=== PATIENT | male | born 1990 | race Hispanic/Latino ===

== ENCOUNTER 2018-09-26 17:04 | Observation (INO) | payer BC, OTHER ==
[~2018-09-26] VITALS: Ht 182.9 cm; Wt 114.8 kg
[2018-09-26] MEDS ORDERED: SODIUM CHLORIDE 0.9% 1000ML 1,000 ML IV ONE ×2 (17:30→18:15)
[2018-09-26] MEDS ORDERED: INSULIN REGULAR, HUMAN 100 UNIT/1 ML 3ML VIAL IV ONE (17:45)
--- NOTE | 2018-09-26 17:47 | NUR ---
LIPS SHOW 'LIPID' READ THROUGHOUT REPEATING TEST. FSBS 560 NOTIFIED.
[2018-09-26] MEDS ORDERED: MORPHINE SULFATE 2 MG/ML SYR 1ML IV PRN (18:15)
[2018-09-26] MEDS ORDERED: DEXTROSE 50% SYRINGE 50 ML IV PRN (18:15)
[2018-09-26] MEDS ORDERED: ONDANSETRON HCL INJ 2MG/ML 2ML 2 MG/ML VIAL IV PRN (18:15)
--- NOTE | 2018-09-26 18:29 | NUR ---
pending room to be clean. report to drew;). 2nd liter ns running w.o.; unable to get cmp d/t blood lipemic. ordered labs for [facility] [place] arrival.
--- NOTE | 2018-09-26 18:31 | NUR ---
pt now states type 2 diabetic newly diagnosised. notified.
--- NOTE | 2018-09-26 18:39 | Diagnostic Imaging Report ---
EXAM: CT Abdomen and Pelvis WITHOUT contrast INDICATION: Abdominal pain. Nausea and vomiting x2 days. COMPARISON: None. TECHNIQUE: Abdomen and pelvis were scanned utilizing a multidetector helical scanner from the lung base to the pubic symphysis without administration of IV contrast. Absence of intravenous contrast decreases sensitivity for detection of focal lesions and vascular pathology. Coronal and sagittal reformations were obtained. Routine protocol was performed. IV CONTRAST: None ORAL CONTRAST: Water COMPLICATIONS: None RADIATION DOSE: Total DLP: 850.29 mGy*cm Estimated effective dose: (DLP x 0.015 x size factor) mSv CTDIvol has been reviewed. It is below the limits set by the Radiation Protocol Committee (RPC). FINDINGS: LINES and TUBES: None. LOWER THORAX: Unremarkable HEPATOBILIARY: The liver is diffuse hypodense compared to the spleen, consistent with diffuse hepatic diffuse hepatic steatosis. No focal hepatic lesions. No biliary ductal dilation. GALLBLADDER: No radio-opaque stones or sludge. No wall thickening. SPLEEN: No splenomegaly. PANCREAS: Indistinct pancreatic tail with peripancreatic fat stranding. ADRENALS: No adrenal nodules KIDNEYS/URETERS: No hydronephrosis. No cystic or solid mass lesions. No stones. GI TRACT: No abnormal distention, wall thickening, or evidence of bowel obstruction. Appendix is normal. PELVIC ORGANS/BLADDER: Unremarkable. LYMPH NODES: No lymphadenopathy. VESSELS: Unremarkable. PERITONEUM / RETROPERITONEUM: No free air or fluid. BONES: Unremarkable. SOFT TISSUES: Subtle nonspecific soft tissue stranding in the right anterior abdominal wall subcutaneous tissue, possibly related to medication injection. IMPRESSION: 1. Distal pancreatitis. No fluid collections or free fluid. 2. Diffuse hepatic steatosis. Signed by: Dr. Morales Lombardi M.D. on 09/26/2018 6:36 PM
[2018-09-26 21:00] VITALS: BP 118/66
[2018-09-26] MEDS: INSULIN REGULAR, HUMAN 100 UNIT/1 ML 3ML VIAL SQ SCH (22:11)
[2018-09-26] MEDS ORDERED: MORPHINE SULFATE INJ 4 MG/ML INJ 1ML ONE (22:13)
--- NOTE | 2018-09-26 22:25 | NUR ---
Patient was given 4mg of Morphine for reported pain on his abdomen 04/17. About 30 seconds after the morphine was slowly administered, patient developed a rash on left side of his arm all the way to his chest. Patient reported feeling "anxious, and funny" and stated that was the first time he had morphine. The rash slowly got better. Patient denied SOB and chest discomfort.
[2018-09-26] MEDS: SODIUM CHLORIDE 0.9% 1000ML 1,000 ML IV SCH (22:31)
[2018-09-26 22:40] VITALS: BP 118/66
[2018-09-27] VITALS (7 sets, daily range): BP systolic 103–130; BP diastolic 58–74
[2018-09-27 00:10] LABS: ALBUMIN 3.2 g/dL (3.5-5.0); ALBUMIN/GLOBULIN RATIO 0.6 (0.8-2.0); ALKALINE PHOSPHATASE 56 IU/L (40-150); ANION GAP 22.5 mmol/L (8-16); BLOOD UREA NITROGEN 8 mg/dL (7-26); BUN/CREATININE RATIO 12 (6-25); CALCIUM 8.1 mg/dL (8.4-10.2); CARBON DIOXIDE 10 mmol/L (22-29); CHLORIDE 97 mmol/L (98-107); CREATININE, SERUM 0.68 mg/dL (0.72-1.25); EST GLOMERULAR FILTRATION RATE > 60 ML/MIN (60-); GLUCOSE 225 mg/dL (74-118); POTASSIUM 3.5 mmol/L (3.5-5.1)
[2018-09-27 00:13] LABS: SODIUM 126 mmol/L (136-145)
[2018-09-27 00:37] LABS: ALANINE AMINOTRANSFERASE 50 IU/L (0-55)
[2018-09-27] MEDS: SODIUM CHLORIDE 0.9% 1000ML 1,000 ML IV SCH ×4 (02:09→21:05)
--- NOTE | 2018-09-27 05:43 | NUR ---
Call the attending physician Raphael Vyas MD. to request for pain medication. The patient has been experiencing pain throughout the night on his abdomen. He was sleeping earlier, but now that he woke up he states "I was exhausted and knocked out but the pain has not resolved, is worse when I lay on my side". Have not received a response yet.
[2018-09-27 06:44] LABS: AMYLASE 28 U/L (25-125); ANION GAP 19.6 mmol/L (8-16); BLOOD UREA NITROGEN 7 mg/dL (7-26); BUN/CREATININE RATIO 9 (6-25); CALCIUM 8.1 mg/dL (8.4-10.2); CARBON DIOXIDE 15 mmol/L (22-29); CHLORIDE 98 mmol/L (98-107); CREATININE, SERUM 0.76 mg/dL (0.72-1.25); EST GLOMERULAR FILTRATION RATE > 60 ML/MIN (60-); GLUCOSE 254 mg/dL (74-118); LIPASE 92 U/L (8-78); POTASSIUM 3.6 mmol/L (3.5-5.1); SODIUM 129 mmol/L (136-145)
[2018-09-27] MEDS: FAMOTIDINE 20 MG TAB PO SCH ×2 (07:39→16:32)
[2018-09-27] MEDS: DONNATAL/LIDOCAINE/MAALOX 30 ML SUSP PO SCH ×3 (07:45→21:05)
[2018-09-27] MEDS: INSULIN REGULAR, HUMAN 100 UNIT/1 ML 3ML VIAL SQ SCH ×2 (07:50→12:09)
[2018-09-27] MEDS: MORPHINE SULFATE INJ 4 MG/ML INJ 1ML IV PRN ×3 (10:08→23:18)
[2018-09-27 10:24] LABS: CHOL/HDL RATIO 30.9 (3.9-4.7); CHOLESTEROL 649 MD/DL (0-199); HDL CHOLESTEROL 21 MG/DL (40-60); LIPASE 96 U/L (8-78)
--- NOTE | 2018-09-27 10:41 | NUR ---
SOCIAL WORK INITIAL ASSESSMENT T[employer] Curer to bedside to discuss plan of care with patient/family. CM/SW role and care transitions discussed. Anticipated discharge plan discussed along with duration of care. CM/SW discussed patients right to make decisions in care. CM/SW work hours given. Patient lives: IN APT WITH GIRLFRIEND Admit/Transfer: VIA ED POA/Emergency contact: MOTHER CATINA NUGENT [phone] Current/Previous Home Health: NONE PCP/Follow-up Care: [facility] Current/Previous DME: NONE Other Services: NONE Employment Status: MEDIA STRATEGIST- [employer] Areas of Concerns: NONE Referral Needs: NONE Education Needs: NONE IMM/DENNIS given and signed (if applicable): NA Goal for discharge: RETURN HOME CM/SW left business card at the bedside with contact information. Name and number was also written on the patients whiteboard. Patient verbalized understanding of discussion. CM will follow-up with ongoing discharge and transition of care needs.
--- NOTE | 2018-09-27 10:52 | NUR ---
POST DISCHARGE STATUS FORM FILE DIN CHART TO RETURN HOME WITH NO NEEDS
[2018-09-27 11:40] LABS: TRIGLYCERIDES 3550 MG/DL (0-149)
--- NOTE | 2018-09-27 14:33 | History and Physical ---
REASON FOR ADMISSION: This is a 27-year-old male, who comes in with abdominal pain and was found to have hyperglycemia with hyperosmolarity. HISTORY OF PRESENT ILLNESS: The patient is a 27-year-old male with a history of diabetes mellitus, recently started on Janumet, which is for his diabetes. The patient had stopped for about a month's time because of natural difficulties. The patient restarted the medication about 5 days prior to admission. The patient started out with abdominal pain, it was radiating to the back, and considered about 8/10 in intensity and the patient also had nausea and vomiting. The patient continued to have these symptoms for 2-3 days until the symptoms abated and the patient was able to eat a little bit. The patient went to work yesterday and started throwing up again, came to the emergency room and was found to have hyperosmolarity, dehydration, and hyperglycemia. He was given 10 units of insulin in the ED and the patient's hyperglycemia did come down. PAST MEDICAL HISTORY: History of diabetes, otherwise nonsignificant. SOCIAL HISTORY: No smoking. No EtOH. No IV drug abuse. FAMILY HISTORY: Positive for hypertension, positive for CAD and positive for diabetes in the family. ALLERGIES: THE PATIENT HAS ALLERGIC REACTION TO MORPHINE. MEDICATIONS: The patient's medicines at home are Janumet 5/500 twice a day. REVIEW OF SYSTEMS: Negative for chest pain. No shortness of breath. Positive for nausea and vomiting. No diarrhea. No constipation. No rectal bleeding. No hematochezia. No hematemesis. No blurry vision. Positive for some headache and no diplopia. PHYSICAL EXAMINATION: VITAL SIGNS: Temperature is 99.0, T-max was 99.0, pulse is 82, blood pressure is 103/58, pulse ox is 96%. HEENT: Normocephalic, atraumatic. Anicteric. CVS: S1 and S2 normal. Regular rate and rhythm. ABDOMEN: Tender in the epigastrium and diffuse tenderness. EXTREMITIES: No clubbing, no cyanosis, and no edema. LABORATORY VALUES: Initial sodium was 126, BUN was 8, creatinine 0.68, anion gap was 22.5, CO2 was 10. Total bilirubin was 0.4. Total protein was 8.9, lipase was 88. Today's values are pending. CBC was normal. Hemoglobin was 18.8 with marked hyperglycemia. Specific gravity was 1.005, pH is 5 on urine and leukocytes negative. ASSESSMENT: 1. Hyperglycemia. 2. Hyperosmolarity. 3. Dehydration. 4. Noncompliance. 5. Hyperlipidemia. 6. Possible acute pancreatitis lipase. PLAN: 1. Continue with hydration and keep the patient n.p.o. Consult with Dr. Ric Noel will be done. 2. The patient will be started on GI cocktail right now. 3. Further recommendation and clinical course, we will continue to monitor the patient. The patient's blood sugar levels will be noted very carefully. His bicarb is 10. We will continue monitoring it and follow up with labs today. The patient is not admitted for DKA, I did not know the bicarb level at that time. Asael Lim MD ASJ/MODL /[id number]
--- NOTE | 2018-09-27 15:07 | Consultation ---
DATE OF CONSULTATION: September 27, 2018 ENDOCRINE CONSULTATION This is a patient of Dr. Asael Lim. Thank you very much for referring this patient. This is a 27-year-old gentleman who is referred to me for evaluation of uncontrolled diabetes mellitus and hyperlipidemia. The patient came to the hospital with history of severe abdominal pain. On further evaluation, his triglycerides were found to be in 3556, and cholesterol was 649. His blood sugars were elevated slightly with high anion gap. His hemoglobin A1c is 13.7. It is significantly elevated. The patient does not smoke, but he drinks alcohol. He does have family history of diabetes mellitus. PHYSICAL EXAMINATION GENERAL: Today the patient is alert, awake, a little bit apprehensive. He is moderately overweight. SKIN: He has acanthosis nigricans skin lesions on his neck. VITALS: His heart rate is around 86. Blood pressure 130/80 mmHg. HEENT: Examination is essentially unremarkable. Thyroid is palpable. Clinically he is near euthyroid. CHEST: Bilateral vesicular breathing. No rales heard. CARDIAC: First and 2nd heart sounds. There is no 3rd or 4th heart sound. Ejection systolic murmur grade 2/6. ABDOMEN: Epigastric and right upper quadrant tenderness. EXTREMITIES: The patient has evidence of diabetic sensory neuropathy in both lower extremities. CLINICAL IMPRESSION 1. Hyperlipidemia. 2. Acute pancreatitis. 3. Diabetes mellitus, type 2, with complications. PLAN: The plan at this time is to continue the IV fluids. Keep him n.p.o. or advance his diet slowly. Will also put him on the Levemir insulin and monitor the blood sugars closely and discontinue the Janumet for now. Thank you for referring this patient. I will be following this patient with you. Job#: [id number] [employer]
[2018-09-27 15:38] LABS: FREE T4 (FREE THYROXINE) 0.91 ng/dL (0.9-1.8); THYROID STIMULATING HORMONE 0.854 uIU/mL (0.350-4.940)
[2018-09-27] MEDS: ENOXAPARIN SOD INJ 40 MG/0.4 ML SYR SC SCH (16:33)
[2018-09-27] MEDS: INSULIN LISPRO 100 UNIT/1 ML 3ML VIAL SQ SCH ×2 (16:49→21:00)
--- NOTE | 2018-09-27 19:45 | NUR ---
Got report from previous nurse. Patient is NPO as per Dr. Lim. Patient has a [address] Lim was notified and ordered Tylenol 650 mg q6hr. Patients at bedside. Call alejandra within reach.
[2018-09-27] MEDS: ACETAMINOPHEN 325 MG TAB PO PRN (20:03)
[2018-09-27] MEDS ORDERED: INSULIN GLARGINE 100 UNITS/ML VIAL SQ SCH ×2 (21:00)
[2018-09-27] MEDS: ATORVASTATIN 20 MG TAB PO SCH (21:04)
[2018-09-28] VITALS (8 sets, daily range): BP systolic 119–141; BP diastolic 65–76
--- NOTE | 2018-09-28 00:15 | NUR ---
Dr. Reji Noel called to give a PO Miralox to the patient for constipation and consent for EGD.
[2018-09-28] MEDS: SODIUM CHLORIDE 0.9% 1000ML 1,000 ML IV SCH ×5 (00:27→14:30)
[2018-09-28] MEDS ORDERED: POLYETHYLENE GLYCOL 3350 17 GM PACK PO PRN (00:30)
[2018-09-28] MEDS ORDERED: SODIUM CHLORIDE 0.9% 1000ML 1,000 ML ONE (04:39)
[2018-09-28 05:31] LABS: BASOPHILS % 0.5 % (0.0-1.0); EOSINOPHILS # (AUTO) 0.3 (0.0-0.4); EOSINOPHILS % 4.2 % (0.0-6.0); HEMATOCRIT 37.7 % (38.2-49.6); HEMOGLOBIN 13.3 g/dL (14.0-18.0); LYMPHOCYTES # (AUTO) 1.6 (1.0-3.2); LYMPHOCYTES % 24.5 % (18.0-39.1); MEAN CORPUSCULAR HEMOGLOBIN 32.1 pg (28-32); MEAN CORPUSCULAR HGB CONC 35.3 g/dL (31-35); MEAN CORPUSCULAR VOLUME 91.1 fL (81-99); MONOCYTES # (AUTO) 0.7 (0.2-0.8); MONOCYTES % 11.1 % (4.4-11.3); NEUTROPHILS # (AUTO) 3.8 (2.1-6.9); NEUTROPHILS % 59.1 % (38.7-80.0); PLATELET COUNT 128 x10e3/uL (140-360); RED BLOOD COUNT 4.14 x10e6/uL (4.3-5.7)
[2018-09-28 06:12] LABS: ALANINE AMINOTRANSFERASE 45 IU/L (0-55); ALBUMIN 2.9 g/dL (3.5-5.0); ALBUMIN/GLOBULIN RATIO 0.7 (0.8-2.0); ALKALINE PHOSPHATASE 60 IU/L (40-150); BLOOD UREA NITROGEN < 5 mg/dL (7-26); CALCIUM 8.4 mg/dL (8.4-10.2); CARBON DIOXIDE 15 mmol/L (22-29); EST GLOMERULAR FILTRATION RATE > 60 ML/MIN (60-); GLUCOSE 187 mg/dL (74-118); MAGNESIUM 2.5 MG/DL (1.3-2.1); POTASSIUM 3.8 mmol/L (3.5-5.1); SODIUM 128 mmol/L (136-145)
[2018-09-28 06:52] LABS: ANION GAP 16.8 mmol/L (8-16); CHLORIDE 103 mmol/L (98-107); CREATININE, SERUM 0.65 mg/dL (0.72-1.25)
[2018-09-28 06:54] LABS: BUN/CREATININE RATIO 8 (6-25)
--- NOTE | 2018-09-28 07:18 | NUR ---
Report given to oncoming nurse. NO pain or distress. Call light within reach.
[2018-09-28] MEDS: ACETAMINOPHEN 325 MG TAB PO PRN (07:29)
[2018-09-28] MEDS: INSULIN LISPRO 100 UNIT/1 ML 3ML VIAL SQ SCH ×4 (07:30→21:00)
[2018-09-28] MEDS: MORPHINE SULFATE INJ 4 MG/ML INJ 1ML IV PRN ×3 (09:50→22:46)
[2018-09-28] MEDS: DONNATAL/LIDOCAINE/MAALOX 30 ML SUSP PO SCH ×3 (09:59→20:59)
[2018-09-28] MEDS: PANTOPRAZOLE 40 MG 10ML VIAL IV SCH ×2 (09:59→20:59)
[2018-09-28] MEDS: FENOFIBRATE 145 MG TAB PO SCH (09:59)
--- NOTE | 2018-09-28 10:32 | Progress Note ---
DATE: SUBJECTIVE: The patient is a 27-year-old male, who comes in with acute pancreatitis, acute hyperosmolar hyperglycemia, and abdominal pain. The patient is currently still complaining of pain. GI cocktail has been given. The patient also was given some MiraLax yesterday for constipation. Back on atorvastatin and fenofibrate for hypertriglyceridemia. MEDICATIONS: He is taking currently are 250 mL per hour of sodium chloride; morphine sulfate as needed 4 mg, atorvastatin 20 mg; glargine 15 mg at nighttime, lispro protocol. He is on enoxaparin for DVT prophylaxis, Tapazole 40 mg, fenofibrate 145 mg. OBJECTIVE: VITAL SIGNS: Temperature is 97.6, T-max is 100.3 hours, blood pressure is 141/68. HEENT: Normocephalic. The patient is anicteric. CVS: S1 and S2 are normal. Regular rate and rhythm. ABDOMEN: Tender in the epigastrium. Bowel sounds are positive. EXTREMITIES: No clubbing, no cyanosis, and no edema. LABORATORY VALUES: Today's white count is 6.42, hemoglobin is 13.3, hematocrit of 37.7. Chemistries; sodium at 128, potassium is 3.8, BUN less than 5, creatinine is pending, glucose of 187, magnesium of 2.5, and lipase is pending at this time. Free T4 is 0.91. The patient's triglycerides are 3550, cholesterol of 649, HDL of 21. Amylase 28 from initial readings, yesterday's lipase repeat was 96. ASSESSMENT: 1. Acute pancreatitis. 2. Hyperosmolar hyperglycemia. 3. Uncontrolled diabetes mellitus. 4. Hypertriglyceridemia. PLAN: 1. Plan is to continue with fluids at this time. The patient may need an EGD secondary to his upper epigastric symptoms, which are persistent, could be from the pancreatitis, but will need an EGD. 2. For his diabetes, his blood sugars are trending down. A1c was 13.7. The patient has been started on Lantus 10 units at nighttime and also sliding scale. The patient is advised on dietary advice to decrease fat in food. Further recommendations and clinical course, we will continue to monitor the patient. Lipase will be done tomorrow and labs and enzymes will be also done tomorrow. Electrolytes will be repleted as needed. MD ANA Jarvis/MODL /[id number]
--- NOTE | 2018-09-28 11:20 | NUR ---
patient back to unit from EGD, Resp even and un labored, not in any distress, call light in reach
--- NOTE | 2018-09-28 15:12 | NUR ---
Nutrition Screen Note RD Recommendation for Physician: -Rec advancing to ADA/ low fat diet as medically appropriate -RD provided diet education on 09/28. Plan of Care: RD following, monitoring for tolerance and adequacy, diet education Nutrition reason for involvement: MD Consult no reason stated Primary Diagnose(s): 1. Acute pancreatitis. 2. Hyperosmolar hyperglycemia. 3. Uncontrolled diabetes mellitus. 4. Hypertriglyceridemia. PMH: DM Ht: 72in Wt: 249.44lb BMI: 33.8kg/m2 IBW: 178lb RD Assessment: (09/28/2018) Chart reviewed. Labs and meds reviewed. 27yo M, who was admitted for abdominal pain. HbA1c at 13.7%; TG 3556; cholesterol 649. Visited pt in the room. 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 Pt tolerated clear liquid with some mild abdominal discomfort. No nausea or vomiting today. LBM 09/26. Pt denied any chewing or swallowing difficulty. Will continue to monitor and follow. Current Diet: clear liquid Malnutrition Evaluation (09/28/2018) The patient does not meet criteria for a specified degree of malnutrition at this time. Will re-evaluate at follow-up as appropriate. Diet Education Needs Assessment: Diet education indicated, pt was agreeable. Learner(s): pt Time spent: 30minutes Barriers: eating out, irregular work schedule Cultural/Language Modifications: No cultural/language modifications noted. Pt speaks Lao. Readiness: Acceptance Method: Handouts, explanation Topics: Heart healthy/ consistent carbohydrate nutrition therapy Understanding/Compliance: Expect good understanding/compliance from pt. Will benefit from reinforcement. All questions have been answered. Nutrition Care Level: low Signed: Lakisha Carter, MS, RD, LD
[2018-09-28] MEDS: ENOXAPARIN SOD INJ 40 MG/0.4 ML SYR SC SCH (16:50)
[2018-09-28] MEDS ORDERED: PROPOFOL IV EMULSION 10 MG/ML 50 ML VIAL ONE (17:12)
[2018-09-28] MEDS ORDERED: LIDOCAINE HCL 2% LOCAL INJ 5 ML SDV VIAL INJ ONE (17:12)
--- NOTE | 2018-09-28 17:54 | Operative Report ---
DATE OF PROCEDURE: 09/28/2018 PROCEDURE: EGD with biopsies. INDICATIONS FOR ESOPHAGOGASTRODUODENOSCOPY: Upper abdominal pain. MEDICATIONS: The patient was done under MAC. Please see anesthesiologist's note. PROCEDURE IN DETAIL: With the patient in left lateral decubitus position, a flexible fiberoptic Olympus gastroscope was introduced into the esophagus under direct visualization without any difficulty. There was some diffuse erythema noted in distal esophagus. Approximately 1 cm ulcerated nodule was noted in the GE junction that was biopsied. The scope was then advanced with ease into the stomach traversing a small sliding hiatal hernia. Mucosa overlying the antrum and the body revealed some patchy erythema, low-grade edema and biopsies were obtained and sent to stain for H. pylori. The pylorus was of normal contour and shape, was intubated with ease and the scope was advanced all the way to the second portion of the duodenum. The scope was then withdrawn slowly. Mucosa overlying the proximal second portion and the duodenal bulb appeared to be within normal limits. The scope was then withdrawn back into the stomach and retroflexed. Mucosa overlying the fundus and cardia appeared to be within normal limits. The scope was then straightened out and subsequently withdrawn. The patient tolerated the procedure well. IMPRESSION: 1. Distal esophagitis, mild. 2. Ulcerated nodule approximately 1 cm, GE junction biopsied. 3. Small sliding hiatal hernia. 4. Gastritis, biopsied. Biopsies sent to stain for H. pylori. PLAN: Follow up pathology. Initiate Protonix 40 mg 1 p.o. before meals twice daily. If biopsies of the ulcerated nodule roller turner to be benign, a followup EGD after 2 months of therapy to reevaluate the ulcerated nodule is in order. Ric Noel MD [facility] [place]/[facility]ARAN /[id number] cc: Asael Lim MD
--- NOTE | 2018-09-28 18:31 | NUR ---
patient resting in bed, AA0x3, PAIN 3/10 on abdomen, no distress, call light in reach
--- NOTE | 2018-09-28 19:00 | NUR ---
Report taken from previous nurse. Patient lying in bed. Call alejandra within reach.
[2018-09-28] MEDS: ATORVASTATIN 20 MG TAB PO SCH (20:59)
[2018-09-28] MEDS: INSULIN GLARGINE 100 UNITS/ML VIAL SQ SCH (21:01)
[2018-09-29] VITALS (8 sets, daily range): BP systolic 107–129; BP diastolic 56–74
--- NOTE | 2018-09-29 03:34 | NUR ---
Call light within reach. No pain or distress. Patient asleep in bed.
[2018-09-29] MEDS: SODIUM CHLORIDE 0.9% 1000ML 1,000 ML IV SCH ×3 (03:41→14:00)
[2018-09-29] MEDS: MORPHINE SULFATE INJ 4 MG/ML INJ 1ML IV PRN ×3 (05:11→21:55)
[2018-09-29 05:13] LABS: BASOPHILS % 0.7 % (0.0-1.0); EOSINOPHILS # (AUTO) 0.3 (0.0-0.4); EOSINOPHILS % 5.1 % (0.0-6.0); HEMATOCRIT 38.1 % (38.2-49.6); HEMOGLOBIN 13.2 g/dL (14.0-18.0); LYMPHOCYTES # (AUTO) 1.4 (1.0-3.2); LYMPHOCYTES % 25.3 % (18.0-39.1); MEAN CORPUSCULAR HEMOGLOBIN 31.7 pg (28-32); MEAN CORPUSCULAR HGB CONC 34.6 g/dL (31-35); MEAN CORPUSCULAR VOLUME 91.6 fL (81-99); MONOCYTES # (AUTO) 0.6 (0.2-0.8); MONOCYTES % 11.7 % (4.4-11.3); NEUTROPHILS # (AUTO) 3.1 (2.1-6.9); NEUTROPHILS % 56.5 % (38.7-80.0); PLATELET COUNT 141 x10e3/uL (140-360); RED BLOOD COUNT 4.16 x10e6/uL (4.3-5.7); RED CELL DISTRIBUTION WIDTH 14.4 % (11.7-14.4)
[2018-09-29 05:48] LABS: ALANINE AMINOTRANSFERASE 45 IU/L (0-55); ALBUMIN 2.7 g/dL (3.5-5.0); ALBUMIN/GLOBULIN RATIO 0.7 (0.8-2.0); ALKALINE PHOSPHATASE 62 IU/L (40-150); ANION GAP 14.5 mmol/L (8-16); BLOOD UREA NITROGEN < 5 mg/dL (7-26); CALCIUM 8.8 mg/dL (8.4-10.2); CARBON DIOXIDE 19 mmol/L (22-29); CHLORIDE 104 mmol/L (98-107); CREATININE, SERUM 0.67 mg/dL (0.72-1.25); EST GLOMERULAR FILTRATION RATE > 60 ML/MIN (60-); GLUCOSE 177 mg/dL (74-118); POTASSIUM 3.5 mmol/L (3.5-5.1); SODIUM 134 mmol/L (136-145)
[2018-09-29 05:49] LABS: BUN/CREATININE RATIO 7 (6-25)
--- NOTE | 2018-09-29 07:36 | NUR ---
REPORT GIVEN TO ONCOMING NURSE. CALL LIGHT WITHIN REACH.
[2018-09-29] MEDS: INSULIN LISPRO 100 UNIT/1 ML 3ML VIAL SQ SCH ×4 (08:15→20:42)
[2018-09-29] MEDS: DONNATAL/LIDOCAINE/MAALOX 30 ML SUSP PO SCH ×3 (09:04→20:18)
[2018-09-29] MEDS: PANTOPRAZOLE 40 MG 10ML VIAL IV SCH ×2 (09:04→21:45)
[2018-09-29] MEDS: FENOFIBRATE 145 MG TAB PO SCH (09:05)
--- NOTE | 2018-09-29 10:02 | Progress Note ---
DATE: SUBJECTIVE: The patient comes in with acute pancreatitis, abdominal pain, and intractable nausea and vomiting. The patient underwent an EGD yesterday. A small duodenal nodule was noted and biopsied. Distal esophagitis was also noted. The patient continues to have nausea and also abdominal pain, which is epigastric in nature. GI cocktails have been given. Also, the patient is on morphine sulfate. He did eat a Jell-O yesterday and still nauseous on eating. OBJECTIVE: VITAL SIGNS: Temperature is 99.6, T-max today is 97.6, pulse of 83, respirations of 22, and blood pressure is 126/74 with a pulse oximetry of 99% on room air. HEENT: Normocephalic and atraumatic. The patient has no icterus. CVS: S1 and S2 normal. Regular rhythm. ABDOMEN: Tender in the epigastrium. Bowel sounds are normal. EXTREMITIES: No clubbing, no cyanosis, no edema. LABORATORY VALUES: Today's white count is 5.4, hemoglobin is 13.2, and hematocrit is 38.1. Chemistry; sodium 134, potassium 3.5, BUN of less than 5, creatinine is 0.67, and glucose 177 and is trending down. Lipase was not done today, last lipase was 56 and it was normal. ASSESSMENT AND PLAN: 1. Acute pancreatitis, which is resolved. The patient's IV fluid has been turned down to 150. 2. Hyperosmolar hyperglycemia. The patient is on fluids and we will continue with his Lantus as required. 3. Uncontrolled diabetes mellitus. The patient has been given advice on his foods and also dietary advice. 4. Hypertriglyceridemia, currently started back on statin and also fenofibrate. Further recommendation and clinical course, the patient can advance his diet today as tolerated and possible discharge today or tomorrow. This has been agreed upon by the patient. Electrolytes repleted as needed. MD BRIT JarvisJ/MODL /[id number]
[2018-09-29] MEDS: ENOXAPARIN SOD INJ 40 MG/0.4 ML SYR SC SCH (16:09)
--- NOTE | 2018-09-29 19:10 | NUR ---
Report received and walking rounds complete. Pt resting in bed and in no apparent distress. Pt girlfriend at bedside. All safety measures ensured and pt call alejandra near. Pt encouraged to use call alejandra for assistance.
[2018-09-29] MEDS: ATORVASTATIN 20 MG TAB PO SCH (20:18)
[2018-09-29] MEDS: INSULIN GLARGINE 100 UNITS/ML VIAL SQ SCH (20:43)
[2018-09-30] VITALS: BP 110/55
[2018-09-30] MEDS: SODIUM CHLORIDE 0.9% 1000ML 1,000 ML IV SCH ×3 (00:24→13:59)
[2018-09-30 04:00] VITALS: BP 123/69
[2018-09-30] MEDS: MORPHINE SULFATE INJ 4 MG/ML INJ 1ML IV PRN (04:18)
[2018-09-30 06:34] LABS: ANION GAP 16.4 mmol/L (8-16); BLOOD UREA NITROGEN < 5 mg/dL (7-26); CALCIUM 9.1 mg/dL (8.4-10.2); CARBON DIOXIDE 20 mmol/L (22-29); CHLORIDE 106 mmol/L (98-107); CREATININE, SERUM 0.66 mg/dL (0.72-1.25); EST GLOMERULAR FILTRATION RATE > 60 ML/MIN (60-); GLUCOSE 175 mg/dL (74-118); POTASSIUM 3.4 mmol/L (3.5-5.1); SODIUM 139 mmol/L (136-145)
[2018-09-30 06:35] LABS: BUN/CREATININE RATIO 8 (6-25)
--- NOTE | 2018-09-30 06:55 | NUR ---
report given and walking rounds complete. pt resting in bed and in no distress.
--- NOTE | 2018-09-30 07:34 | NUR ---
educated patient to insulin use and had him give his first shot of humalog after education. dad is at the bedside and was also educated to insulin injections. discussed the differenced between long acting and short acting insulin and when to use them. strictly encouraged patient to do his follow up with Dr Mclaughlin for further education and monitoring. also, explained the severe hazards of alcohol use and diabetes.
[2018-09-30 07:53] VITALS: BP 123/58
[2018-09-30] MEDS: INSULIN LISPRO 100 UNIT/1 ML 3ML VIAL SQ SCH ×2 (07:57→11:41)
[2018-09-30] MEDS: PANTOPRAZOLE 40 MG 10ML VIAL IV SCH (09:17)
[2018-09-30] MEDS: DONNATAL/LIDOCAINE/MAALOX 30 ML SUSP PO SCH ×2 (09:17→13:59)
[2018-09-30] MEDS: FENOFIBRATE 145 MG TAB PO SCH (09:17)
--- NOTE | 2018-09-30 10:11 | Progress Note ---
DATE: SUBJECTIVE: This is a 27-year-old male, who comes in with pancreatitis, acute. The patient's pancreatitis and pain have resolved. The patient is also found to have an ulcerated nodule in GE junction. The patient has no fever. Positive bowel movements and has tolerated a full liquid diet. OBJECTIVE: VITAL SIGNS: Currently, the patient's vital signs, temperature is 96.7, pulse of 76, respirations of 18, blood pressure is 123/69, pulse oximetry of 96%. HEENT: Normocephalic, atraumatic. No icterus present. CVS: S1, S2 normal. Regular rate and rhythm. ABDOMEN: Tender in the epigastrium. EXTREMITIES: No clubbing, no cyanosis, no edema. MEDICATIONS: The patient taking are pantoprazole 40 mg q.12 hours, insulin glargine 18 units at nighttime and insulin lispro sliding scale, atorvastatin 20 mg, the patient is also on fenofibrate 145 mg, MiraLAX as needed, and also Zofran for nausea. LABORATORY VALUES: Today's hemoglobin was normal, yesterday was 13.3 and hematocrit 38.2. Chemistries; lipase has normalized. Glucoses are running in the 160s to 120s. The patient's lipid panel is reviewed with the triglycerides of 3550. ASSESSMENT: 1. Acute pancreatitis, possibly secondary to hypercholesterolemia and triglyceridemia. We will continue to monitor the patient. Anti-triglyceride medications have been started. 2. Pancreatitis, resolved. 3. Hypertension. 4. Diabetes mellitus, uncontrolled. The patient is on insulin. PLAN: Plan is to discharge the patient today on a bland diet. The patient has been advised to stop all fatty foods and also stop alcohol altogether. The patient is being given full liquid diet to start off and then advance diet, to be followed with me in about a week's time. Further recommendation per clinical course. The patient has been given advice in teaching on insulin and also diabetic teaching. Asael Lim MD ASJ/MODL /[id number]
[2018-09-30 11:42] VITALS: BP 116/63
[2018-09-30] MEDS ORDERED: PANTOPRAZOLE SO40 MG PO (13:22)
[2018-09-30] MEDS ORDERED: HUMALOG100 UNIT/1 SQ (13:23)
[2018-09-30] MEDS ORDERED: CARAFATE1 GM/10 ML PO (13:23)
[2018-09-30] MEDS ORDERED: FENOFIBRATE145 MG PO (13:24)
[2018-09-30] MEDS ORDERED: LIPITOR20 MG PO (13:25)
[2018-09-30] MEDS ORDERED: LANTUS 3ML100 UNITS/ SQ (13:25)
== END 2018-09-30 14:55 | disposition home or self-care (01) ==
LOC: FSED 17:04 → ERHOLD 18:07 → IMCU 21:10
PROVIDERS: ADMIT Family Medicine; ATTEND Family Medicine
DX: K85.90 Acute pancreatitis without necrosis or infection, unspecified (principal); E11.00 Type 2 diabetes mellitus with hyperosmolarity without nonketotic hyperglycemic-hyperosmolar coma (NKHHC); Z79.4 Long term (current) use of insulin; E86.0 Dehydration; E78.5 Hyperlipidemia, unspecified; Z91.19 Patient's noncompliance with other medical treatment and regimen; E11.65 Type 2 diabetes mellitus with hyperglycemia; K22.10 Ulcer of esophagus without bleeding; K44.9 Diaphragmatic hernia without obstruction or gangrene; K59.00 Constipation, unspecified; K76.0 Fatty (change of) liver, not elsewhere classified
CPT/HCPCS: 36415 ×5; 43239; 74176; 80048 ×2; 80053 ×3; 80061; 81003; 82150; 82948 ×5; 83036; 83690 ×3; 83735; 84439; 84443; 85025 ×3; 88305; 88312; 96361; 96372; 99284; C9113 ×3; G0378 ×5; J1650 ×3; J1815; J1817; J2001; J2270 ×6; J2405; J2704; J7030 ×5

== ENCOUNTER 2020-11-24 14:24 | Emergency (ER) | payer SELFPAY ==
[~2020-11-24] VITALS: Ht 182.9 cm; Wt 127.0 kg
[~2020-11-24 14:24] MED LIST: CARAFATE1 GM/10 ML PO; FENOFIBRATE145 MG PO; HUMALOG100 UNIT/1 SQ; LANTUS 3ML100 UNITS/ SQ; LIPITOR20 MG PO; PANTOPRAZOLE SO40 MG PO
[2020-11-24] MEDS ORDERED: KETOROLAC TROMETHAMINE 30 MG/ML VIAL IM ONE (14:45)
[2020-11-24] MEDS ORDERED: ACETAMINOPHEN 325 MG TAB PO ONE (14:45)
[2020-11-24] MEDS ORDERED: ONDANSETRON HCL 4 MG ORAL DISINTEGRATING TAB PO ONE (14:45)
[2020-11-24] MEDS ORDERED: ACETAMINOPHEN500 MG PO (14:47)
[2020-11-24] MEDS ORDERED: IBUPROFEN IB200 MG PO (14:47)
[2020-11-24] MEDS ORDERED: KETOROLAC TROMETHAMINE 30 MG/ML VIAL ONE (14:55)
[2020-11-24] MEDS ORDERED: ACETAMINOPHEN 325 MG TAB ONE (14:55)
[2020-11-24] MEDS ORDERED: ONDANSETRON HCL 4 MG ORAL DISINTEGRATING TAB ONE (14:55)
[2020-11-24 15:38] VITALS: BP 130/76
== END 2020-11-24 15:30 | disposition home or self-care (01) ==
LOC: FSED 14:30
DX: M25.572 Pain in left ankle and joints of left foot (principal); M19.072 Primary osteoarthritis, left ankle and foot; E11.9 Type 2 diabetes mellitus without complications
CPT/HCPCS: 73610; 96372; 99283; J1885; Q0162

== ENCOUNTER 2021-04-19 21:43 | Inpatient (IN) | payer SELFPAY ==
[~2021-04-19] VITALS: Ht 182.9 cm; Wt 127.0 kg
[~2021-04-19 21:43] MED LIST changes: +ACETAMINOPHEN500 MG PO; +IBUPROFEN IB200 MG PO
[2021-04-19] MEDS ORDERED: ONDANSETRON HCL INJ 2MG/ML 2ML 2 MG/ML VIAL IV STA (22:40)
[2021-04-19] MEDS ORDERED: KETOROLAC TROMETHAMINE 30 MG/ML VIAL IV STA (22:40)
[2021-04-19] MEDS ORDERED: SODIUM CHLORIDE 0.9% 1000ML 1,000 ML IV STA (22:40)
[2021-04-19 23:13] LABS: BASOPHILS # (AUTO) 0.1 (0.0-0.1); BASOPHILS % 0.5 % (0.0-1.0); EOSINOPHILS # (AUTO) 0.3 (0.0-0.4); EOSINOPHILS % 2.7 % (0.0-6.0); HEMATOCRIT 42.7 % (38.2-49.6); HEMOGLOBIN 19.9 g/dL (14.0-18.0); LYMPHOCYTES # (AUTO) 2.1 (1.0-3.2); LYMPHOCYTES % 22.2 % (18.0-39.1); MEAN CORPUSCULAR HEMOGLOBIN 44.3 pg (28-32); MEAN CORPUSCULAR HGB CONC 46.6 g/dL (31-35); MEAN CORPUSCULAR VOLUME 95.1 fL (81-99); MONOCYTES # (AUTO) 0.9 (0.2-0.8); MONOCYTES % 9.3 % (4.4-11.3); NEUTROPHILS # (AUTO) 6.1 (2.1-6.9); NEUTROPHILS % 64.7 % (38.7-80.0); PLATELET COUNT 171 x10e3/uL (140-360); RED BLOOD COUNT 4.49 x10e6/uL (4.3-5.7); RED CELL DISTRIBUTION WIDTH 12.9 % (11.7-14.4)
[2021-04-19 23:16] LABS: CLARITY,URINE CLEAR (CLEAR); COLOR,URINE YELLOW (YELLOW); LEUKOCYTE ESTERASE ,URINE NEGATIVE (NEGATIVE)
[2021-04-19 23:17] LABS: AMPHETAMINES SCREEN,URINE NEGATIVE (NEGATIVE); BENZODIAZEPINES SCREEN,URINE NEGATIVE (NEGATIVE); KETONES,URINE >=160 (NEGATIVE); NITRITE,URINE NEGATIVE (NEGATIVE); PHENCYCLIDINE SCREEN,URINE NEGATIVE (NEGATIVE); PROTEIN,URINE DIPSTICK 1+ (NEGATIVE); URINE UROBILINOGEN 0.2 mg/dL (0.2 - 1)
[2021-04-19 23:29] LABS: BACTERIA,URINE MODERATE /HPF; EPITHELIAL CELLS,URINE FEW /LPF; RBC,URINE 0-5 /HPF (0-5); WBC,URINE (MAN) 0-5 /HPF (0-5)
[2021-04-19 23:41] LABS: ALBUMIN 4.4 g/dL (3.5-5.0); ALBUMIN/GLOBULIN RATIO 0.3 (0.8-2.0); CALCIUM 10.4 mg/dL (8.4-10.2); CHLORIDE 91 mmol/L (98-107); POTASSIUM 3.2 mmol/L (3.5-5.1); SODIUM 124 mmol/L (136-145)
[2021-04-20] MEDS ORDERED: SODIUM CHLORIDE 0.9% 1000ML 1,000 ML IV SCH (01:30)
[2021-04-20 01:48] LABS: HDL CHOLESTEROL 23 MG/DL (40-60)
[2021-04-20 03:20] LABS: POTASSIUM 4.1 mmol/L (3.6-5.1)
[2021-04-20] MEDS ORDERED: DEXTROSE 5% 1,000 ML IV STA (03:24)
[2021-04-20] MEDS ORDERED: INSULIN REGULAR IN 0.9 % NACL 100 ML IV SCH (03:30)
[2021-04-20 03:32] LABS: ALBUMIN 3.6 g/dL (3.5-5.0); ALBUMIN/GLOBULIN RATIO 0.3 (0.8-2.0); ANION GAP 18.7 mmol/L (8-16); CALCIUM 9.2 mg/dL (8.4-10.2)
[2021-04-20 04:02] LABS: CREATINE KINASE MB 0.3 ng/mL (0-5.0)
[2021-04-20] MEDS ORDERED: FENTANYL CITRATE/PF 100MCG/2 ML INJ IV ONE (04:15)
[2021-04-20] MEDS: ONDANSETRON HCL INJ 2MG/ML 2ML 2 MG/ML VIAL IV PRN ×4 (05:22→14:35)
[2021-04-20] MEDS ORDERED: INSULIN REGULAR, HUMAN 3ML VL 100 UNIT in SODIUM CHLORIDE 0.9% 99 ML IV SCH ×2 (06:30)
[2021-04-20] MEDS ORDERED: DEXTROSE 5% 1,000 ML IV ONE (06:44)
[2021-04-20] MEDS ORDERED: IOPAMIDOL 370 MG/ML 200 ML INFUS..BTL INJ ONE (07:09)
[2021-04-20] MEDS ORDERED: SODIUM CHLORIDE 0.9% 50ML 50 ML ONE (07:10)
[2021-04-20 10:12] LABS: CHOL/HDL RATIO 42.9 (3.9-4.7); CHOLESTEROL 987 MD/DL (0-199)
[2021-04-20 10:17] LABS: TRIGLYCERIDES 8966 MG/DL (0-149)
[2021-04-20 10:45] LABS: CREATINE KINASE MB 0.3 ng/mL (0-5.0)
[2021-04-20 12:34] LABS: HDL CHOLESTEROL 12 MG/DL (40-60)
[2021-04-20 12:52] LABS: CHOL/HDL RATIO 68.4 (3.9-4.7); CHOLESTEROL 821 MD/DL (0-199)
[2021-04-20 13:18] LABS: TRIGLYCERIDES 5104 MG/DL (0-149)
[2021-04-20] MEDS ORDERED: DEXTROSE 5%/0.9% SOD CHL 1,000 ML IV SCH (14:30)
[2021-04-20] MEDS: KETOROLAC TROMETHAMINE 30 MG/ML VIAL IM PRN ×2 (14:35→20:45)
[2021-04-20 14:40] VITALS: BP 136/83
[2021-04-20 16:00] VITALS: BP 133/89
[2021-04-20] MEDS ORDERED: DEXTROSE 5%/0.45% SOD CHL 1,000 ML IV SCH (16:30)
[2021-04-20] MEDS ORDERED: DEXTROSE 50% SYRINGE 50 ML IV PRN (16:45)
[2021-04-20] MEDS ORDERED: LACTATED RINGER'S 1,000 ML INJ ONE (17:00)
[2021-04-20] MEDS ORDERED: ACETAMINOPHEN 325 MG TAB PO PRN (17:00)
[2021-04-20] MEDS: INSULIN REGULAR, HUMAN 3ML VL 100 UNIT in SODIUM CHLORIDE 0.9% 100 ML IV SCH ×6 (18:49→22:50)
[2021-04-20] MEDS ORDERED: LACTATED RINGER'S 1,000 ML INJ SCH (19:00)
[2021-04-20 20:00] VITALS: BP 149/79
[2021-04-20 21:00] VITALS: BP 149/79
[2021-04-20] MEDS ORDERED: FENOFIBRATE 145 MG TAB PO STA (23:45)
[2021-04-21] MEDS: LACTATED RINGER'S 1,000 ML INJ SCH ×6 (00:25→20:24)
[2021-04-21] MEDS: INSULIN REGULAR, HUMAN 3ML VL 100 UNIT in SODIUM CHLORIDE 0.9% 100 ML IV SCH ×4 (00:25→01:30)
[2021-04-21] MEDS ORDERED: LACTATED RINGER'S 1,000 ML INJ ONE ×2 (00:45→02:47)
[2021-04-21] MEDS ORDERED: LACTATED RINGER'S 1,000 ML ONE (00:53)
[2021-04-21 00:54] VITALS: BP 125/68
[2021-04-21] MEDS: ONDANSETRON HCL INJ 2MG/ML 2ML 2 MG/ML VIAL IV PRN (01:04)
[2021-04-21] MEDS: KETOROLAC TROMETHAMINE 30 MG/ML VIAL IM PRN ×4 (03:00→21:33)
[2021-04-21 04:00] VITALS: BP 121/68
[2021-04-21 07:38] LABS: BASOPHILS % 0.3 % (0.0-1.0); EOSINOPHILS # (AUTO) 0.1 (0.0-0.4); EOSINOPHILS % 0.9 % (0.0-6.0); HEMATOCRIT 41.4 % (38.2-49.6); HEMOGLOBIN 14.4 g/dL (14.0-18.0); LYMPHOCYTES % 17.6 % (18.0-39.1); MEAN CORPUSCULAR HEMOGLOBIN 33.4 pg (28-32); MEAN CORPUSCULAR HGB CONC 34.8 g/dL (31-35); MEAN CORPUSCULAR VOLUME 96.1 fL (81-99); MONOCYTES # (AUTO) 0.5 (0.2-0.8); MONOCYTES % 9.2 % (4.4-11.3); NEUTROPHILS # (AUTO) 4.1 (2.1-6.9); NEUTROPHILS % 70.8 % (38.7-80.0); PLATELET COUNT 117 x10e3/uL (140-360); RED BLOOD COUNT 4.31 x10e6/uL (4.3-5.7); RED CELL DISTRIBUTION WIDTH 13.5 % (11.7-14.4)
[2021-04-21 08:00] LABS: ALANINE AMINOTRANSFERASE 24 IU/L (0-55); ALBUMIN 2.9 g/dL (3.5-5.0); ALBUMIN/GLOBULIN RATIO 0.7 (0.8-2.0); ALKALINE PHOSPHATASE 72 IU/L (40-150); ANION GAP 16.2 mmol/L (8-16); BLOOD UREA NITROGEN 5 mg/dL (7-26); BUN/CREATININE RATIO 6 (6-25); CALCIUM 8.9 mg/dL (8.4-10.2); CARBON DIOXIDE 12 mmol/L (22-29); CHLORIDE 109 mmol/L (98-107); CREATININE, SERUM 0.81 mg/dL (0.72-1.25); EST GLOMERULAR FILTRATION RATE 110 ML/MIN (60-); GLUCOSE 184 mg/dL (74-118); MAGNESIUM 1.5 MG/DL (1.3-2.1); POTASSIUM 3.2 mmol/L (3.5-5.1)
[2021-04-21 08:02] LABS: SODIUM 134 mmol/L (136-145)
[2021-04-21] MEDS: FENOFIBRATE 145 MG TAB PO SCH (08:05)
[2021-04-21 08:14] LABS: CHOL/HDL RATIO 17.7 (3.9-4.7); CHOLESTEROL 424 MD/DL (0-199); HDL CHOLESTEROL 24 MG/DL (40-60); PHOSPHORUS 1.5 MG/DL (2.3-4.7); TRIGLYCERIDES 1416 MG/DL (0-149)
[2021-04-21 08:31] LABS: CREATINE KINASE 24 IU/L (30-200)
[2021-04-21 08:43] LABS: THYROID STIMULATING HORMONE 0.88 uIU/mL (0.350-4.940)
[2021-04-21 09:07] VITALS: BP 123/73
[2021-04-21] MEDS ORDERED: MAGNESIUM SULF 1GRAM/DEXTROSE 100 ML IV ONE (10:00)
[2021-04-21] MEDS ORDERED: POTASSIUM PHOSPHATE 15 MM in SODIUM CHLORIDE 0.9% 250ML 250 ML IV ONE (10:00)
[2021-04-21 10:01] VITALS: BP 123/73
[2021-04-21] MEDS ORDERED: DEXTROSE 50% SYRINGE 50 ML IV PRN (13:30)
[2021-04-21 14:20] LABS: FREE T4 (FREE THYROXINE) 0.77 ng/dL (0.8-1.8); THYROID STIMULATING HORMONE 0.83 uIU/mL (0.350-4.940)
[2021-04-21 17:42] LABS: ANION GAP 18.2 mmol/L (8-16); BLOOD UREA NITROGEN < 5 mg/dL (7-26); BUN/CREATININE RATIO 7 (6-25); CALCIUM 8.8 mg/dL (8.4-10.2); CARBON DIOXIDE 11 mmol/L (22-29); CHLORIDE 109 mmol/L (98-107); CREATININE, SERUM 0.76 mg/dL (0.72-1.25); EST GLOMERULAR FILTRATION RATE 119 ML/MIN (60-); GLUCOSE 206 mg/dL (74-118); POTASSIUM 3.2 mmol/L (3.5-5.1); SODIUM 135 mmol/L (136-145)
[2021-04-21] MEDS: ATORVASTATIN 20 MG TAB PO SCH (19:50)
[2021-04-21] MEDS ORDERED: POTASSIUM CHLORIDE 20MEQ/100ML 100 ML IV ONE (20:00)
[2021-04-21 20:51] VITALS: BP 127/73
[2021-04-21 21:00] VITALS: BP 127/73
[2021-04-22] VITALS (8 sets, daily range): BP systolic 107–129; BP diastolic 60–76
[2021-04-22] MEDS: LACTATED RINGER'S 1,000 ML INJ SCH ×6 (01:15→21:00)
[2021-04-22 05:14] LABS: BASOPHILS % 0.6 % (0.0-1.0); EOSINOPHILS # (AUTO) 0.2 (0.0-0.4); EOSINOPHILS % 2.4 % (0.0-6.0); HEMATOCRIT 37.4 % (38.2-49.6); HEMOGLOBIN 12.6 g/dL (14.0-18.0); LYMPHOCYTES # (AUTO) 0.9 (1.0-3.2); LYMPHOCYTES % 13.6 % (18.0-39.1); MEAN CORPUSCULAR HEMOGLOBIN 33.1 pg (28-32); MEAN CORPUSCULAR HGB CONC 33.7 g/dL (31-35); MEAN CORPUSCULAR VOLUME 98.2 fL (81-99); MONOCYTES # (AUTO) 0.8 (0.2-0.8); MONOCYTES % 12.3 % (4.4-11.3); NEUTROPHILS # (AUTO) 4.6 (2.1-6.9); NEUTROPHILS % 69.7 % (38.7-80.0); PLATELET COUNT 121 x10e3/uL (140-360); RED BLOOD COUNT 3.81 x10e6/uL (4.3-5.7); RED CELL DISTRIBUTION WIDTH 14.4 % (11.7-14.4)
[2021-04-22 05:32] LABS: ALBUMIN 2.3 g/dL (3.5-5.0); ALBUMIN/GLOBULIN RATIO 0.6 (0.8-2.0); ANION GAP 19.5 mmol/L (8-16); CALCIUM 8.6 mg/dL (8.4-10.2); CREATININE, SERUM 0.76 mg/dL (0.72-1.25); POTASSIUM 3.5 mmol/L (3.5-5.1)
[2021-04-22] MEDS: FENOFIBRATE 145 MG TAB PO SCH (08:45)
[2021-04-22] MEDS: KETOROLAC TROMETHAMINE 30 MG/ML VIAL IM PRN (08:50)
[2021-04-22] MEDS: ONDANSETRON HCL INJ 2MG/ML 2ML 2 MG/ML VIAL IV PRN (12:00)
[2021-04-22] MEDS: INSULIN REGULAR, HUMAN 3ML VL 100 UNIT in SODIUM CHLORIDE 0.9% 100 ML IV SCH ×2 (19:22)
[2021-04-22] MEDS: ATORVASTATIN 20 MG TAB PO SCH (21:00)
[2021-04-23] VITALS (7 sets, daily range): BP systolic 99–126; BP diastolic 65–83
[2021-04-23] MEDS: LACTATED RINGER'S 1,000 ML INJ SCH ×3 (04:15→20:39)
[2021-04-23] MEDS: FENOFIBRATE 145 MG TAB PO SCH (09:00)
[2021-04-23 09:31] LABS: ANION GAP 12.7 mmol/L (8-16); CALCIUM 8.5 mg/dL (8.4-10.2); CREATININE, SERUM 0.63 mg/dL (0.72-1.25)
[2021-04-23 09:40] LABS: POTASSIUM 2.7 mmol/L (3.5-5.1)
[2021-04-23] MEDS ORDERED: POTASSIUM CHLORIDE 20MEQ/100ML 100 ML IV ONE ×2 (10:30→13:00)
[2021-04-23] MEDS: KETOROLAC TROMETHAMINE 30 MG/ML VIAL IM PRN (11:19)
[2021-04-23] MEDS: INSULIN REGULAR, HUMAN 3ML VL 100 UNIT in SODIUM CHLORIDE 0.9% 100 ML IV SCH ×4 (11:20→12:14)
[2021-04-23] MEDS ORDERED: POTASSIUM CHLORIDE 10MEQ/100ML 400 ML IV ONE (20:00)
[2021-04-23] MEDS: ATORVASTATIN 20 MG TAB PO SCH (21:00)
[2021-04-23] MEDS: LORAZEPAM INJ 2 MG/ML VIAL IV PRN (23:45)
[2021-04-24 01:45] VITALS: BP 123/74
[2021-04-24 05:25] VITALS: BP 111/84
[2021-04-24] MEDS: LACTATED RINGER'S 1,000 ML INJ SCH ×3 (06:27→21:32)
[2021-04-24 06:58] LABS: MAGNESIUM 1.4 MG/DL (1.3-2.1)
[2021-04-24] MEDS: INSULIN REGULAR, HUMAN 3ML VL 100 UNIT in SODIUM CHLORIDE 0.9% 100 ML IV SCH ×6 (08:56→21:33)
[2021-04-24] MEDS: FENOFIBRATE 145 MG TAB PO SCH (08:57)
[2021-04-24 09:20] LABS: BLOOD UREA NITROGEN < 5 mg/dL (7-26); BUN/CREATININE RATIO 10 (6-25); CALCIUM 8.7 mg/dL (8.4-10.2); CARBON DIOXIDE 22 mmol/L (22-29); CHLORIDE 106 mmol/L (98-107); EST GLOMERULAR FILTRATION RATE 193 ML/MIN (60-); GLUCOSE 198 mg/dL (74-118); SODIUM 142 mmol/L (136-145)
[2021-04-24] MEDS ORDERED: MAGNESIUM SULFATE 2GM/50ML 50 ML IV ONE (11:00)
[2021-04-24] MEDS ORDERED: POTASSIUM CHLORIDE 20 MEQ TAB CR PO ONE (11:00)
[2021-04-24 12:20] VITALS: BP 124/87
[2021-04-24 18:07] VITALS: BP 112/85
[2021-04-24 20:00] VITALS: BP 137/89
[2021-04-24 21:30] VITALS: BP 137/89
[2021-04-24] MEDS: ATORVASTATIN 20 MG TAB PO SCH (21:32)
[2021-04-24] MEDS: LORAZEPAM INJ 2 MG/ML VIAL IV PRN (21:45)
[2021-04-25] VITALS (10 sets, daily range): BP systolic 118–139; BP diastolic 78–96
[2021-04-25 06:20] LABS: ANION GAP 12.7 mmol/L (8-16); BLOOD UREA NITROGEN < 5 mg/dL (7-26); CALCIUM 8.9 mg/dL (8.4-10.2); CARBON DIOXIDE 28 mmol/L (22-29); CHLORIDE 104 mmol/L (98-107); CREATININE, SERUM 0.55 mg/dL (0.72-1.25); EST GLOMERULAR FILTRATION RATE 173 ML/MIN (60-); GLUCOSE 189 mg/dL (74-118); SODIUM 142 mmol/L (136-145)
[2021-04-25 06:26] LABS: BUN/CREATININE RATIO 9 (6-25); POTASSIUM 2.7 mmol/L (3.5-5.1)
[2021-04-25] MEDS ORDERED: POTASSIUM CHLORIDE 20 MEQ TAB CR PO STA (06:31)
[2021-04-25] MEDS: FENOFIBRATE 145 MG TAB PO SCH (09:11)
[2021-04-25] MEDS: LACTATED RINGER'S 1,000 ML INJ SCH ×2 (09:12→21:43)
[2021-04-25] MEDS: INSULIN REGULAR, HUMAN 3ML VL 100 UNIT in SODIUM CHLORIDE 0.9% 100 ML IV SCH ×4 (09:13→16:40)
[2021-04-25] MEDS ORDERED: POTASSIUM CHLORIDE 20 MEQ TAB CR PO ONE (10:45)
[2021-04-25] MEDS: ATORVASTATIN 20 MG TAB PO SCH (21:19)
[2021-04-25] MEDS: LORAZEPAM INJ 2 MG/ML VIAL IV PRN (21:51)
[2021-04-26] VITALS (7 sets, daily range): BP systolic 128–137; BP diastolic 81–95
[2021-04-26] MEDS: INSULIN REGULAR, HUMAN 3ML VL 100 UNIT in SODIUM CHLORIDE 0.9% 100 ML IV SCH ×6 (01:47→21:22)
[2021-04-26 06:33] LABS: ALANINE AMINOTRANSFERASE 30 IU/L (0-55); ALBUMIN 2.7 g/dL (3.5-5.0); ALBUMIN/GLOBULIN RATIO 0.8 (0.8-2.0); ALKALINE PHOSPHATASE 61 IU/L (40-150); ANION GAP 13.9 mmol/L (8-16); BLOOD UREA NITROGEN < 5 mg/dL (7-26); CALCIUM 8.8 mg/dL (8.4-10.2); CARBON DIOXIDE 27 mmol/L (22-29); CHLORIDE 104 mmol/L (98-107); CREATININE, SERUM 0.57 mg/dL (0.72-1.25); EST GLOMERULAR FILTRATION RATE 166 ML/MIN (60-); GLUCOSE 173 mg/dL (74-118); SODIUM 142 mmol/L (136-145)
[2021-04-26 06:45] LABS: BUN/CREATININE RATIO 9 (6-25)
[2021-04-26 06:46] LABS: POTASSIUM 2.9 mmol/L (3.5-5.1)
[2021-04-26] MEDS ORDERED: POTASSIUM CHLORIDE 20 MEQ TAB CR PO STA ×2 (06:55→07:06)
[2021-04-26] MEDS: LACTATED RINGER'S 1,000 ML INJ SCH ×2 (07:58→16:20)
[2021-04-26] MEDS: FENOFIBRATE 145 MG TAB PO SCH (07:58)
[2021-04-26] MEDS ORDERED: POTASSIUM CHLORIDE 20 MEQ TAB CR PO ONE ×3 (11:00→15:30)
[2021-04-26] MEDS: ATORVASTATIN 20 MG TAB PO SCH (20:09)
[2021-04-26] MEDS: LORAZEPAM INJ 2 MG/ML VIAL IV PRN (20:22)
[2021-04-27] VITALS (8 sets, daily range): BP systolic 115–138; BP diastolic 81–90
[2021-04-27] MEDS: INSULIN REGULAR, HUMAN 3ML VL 100 UNIT in SODIUM CHLORIDE 0.9% 100 ML IV SCH ×8 (00:11→12:03)
[2021-04-27] MEDS: LACTATED RINGER'S 1,000 ML INJ SCH ×3 (02:30→23:56)
[2021-04-27] MEDS: LORAZEPAM INJ 2 MG/ML VIAL IV PRN (02:58)
[2021-04-27] MEDS: FENOFIBRATE 145 MG TAB PO SCH (08:35)
[2021-04-27 11:19] LABS: ANION GAP 11.8 mmol/L (8-16); CALCIUM 9.4 mg/dL (8.4-10.2); CREATININE, SERUM 0.64 mg/dL (0.72-1.25); POTASSIUM 3.8 mmol/L (3.5-5.1)
[2021-04-27] MEDS ORDERED: DEXTROSE 50% SYRINGE 50 ML IV PRN (15:15)
[2021-04-27] MEDS: INSULIN LISPRO 100 UNIT/1 ML 3ML VIAL SQ SCH ×3 (18:11→21:08)
[2021-04-27] MEDS ORDERED: INSULIN GLARGINE 100 UNITS/ML VIAL SQ SCH (21:00)
[2021-04-27] MEDS ORDERED: MELATONIN 3 MG TAB PO SCH (21:00)
[2021-04-27] MEDS: ATORVASTATIN 20 MG TAB PO SCH (21:07)
[2021-04-28] VITALS: BP 106/51
[2021-04-28 04:00] VITALS: BP 121/66
[2021-04-28 08:18] VITALS: BP 124/92
[2021-04-28] MEDS: FENOFIBRATE 145 MG TAB PO SCH (09:20)
[2021-04-28] MEDS: INSULIN LISPRO 100 UNIT/1 ML 3ML VIAL SQ SCH ×4 (09:22→12:57)
[2021-04-28 09:48] VITALS: BP 124/92
[2021-04-28 09:49] VITALS: BP 124/92
[2021-04-28 12:12] VITALS: BP 103/66
== END 2021-04-28 18:38 | disposition home or self-care (01) | DRG 438 ==
LOC: ER 22:40 → ERHOLD 04-20 01:28 → IMCU 04-20 14:02
PROVIDERS: ADMIT Family Medicine; ATTEND Family Medicine
DX: K85.20 Alcohol induced acute pancreatitis without necrosis or infection (principal); E11.10 Type 2 diabetes mellitus with ketoacidosis without coma; U07.1 COVID-19; J12.82 Pneumonia due to coronavirus disease 2019; C64.1 Malignant neoplasm of right kidney, except renal pelvis; D01.7 Carcinoma in situ of other specified digestive organs; K85.80 Other acute pancreatitis without necrosis or infection; K21.9 Gastro-esophageal reflux disease without esophagitis; E78.5 Hyperlipidemia, unspecified; E78.1 Pure hyperglyceridemia; E11.65 Type 2 diabetes mellitus with hyperglycemia; E66.01 Morbid (severe) obesity due to excess calories; Z72.89 Other problems related to lifestyle; Z88.5 Allergy status to narcotic agent; Z79.4 Long term (current) use of insulin; Z83.3 Family history of diabetes mellitus; Z68.38 Body mass index [BMI] 38.0-38.9, adult
CPT/HCPCS: 36415; 74177; 80048; 80053; 80061; 80307; 81001; 82150; 82550; 82553; 82948; 83036; 83690; 83735; 84100; 84132; 84439; 84443; 84478; 84484; 85025; 96361; 96372; 99284; J1817; J1885; J2060; J2405; J3010; J3475; J3480; J7030; J7042; J7050; J7070; J7121; Q9967; U0002

== ENCOUNTER 2022-03-28 19:12 | Emergency (ER) | payer SELFPAY ==
[~2022-03-28] VITALS: Ht 182.9 cm; Wt 127.0 kg
[~2022-03-28 19:12] MED LIST changes: +SODIUM CHLORIDE 0.9% 1000ML 1,000 ML IV SCH; +SODIUM CHLORIDE FLUSH 10 ML SYR IV PRN
[2022-03-28] MEDS ORDERED: ONDANSETRON HCL INJ 2MG/ML 2ML 2 MG/ML VIAL IV STA (19:44)
[2022-03-28] MEDS ORDERED: Morphine 4mg INJECTION 4 MG/ML INJ IV ONE (19:45)
[2022-03-28 20:20] LABS: BASOPHILS % 0.4 % (0.0-1.0); EOSINOPHILS # (AUTO) 0.2 (0.0-0.4); EOSINOPHILS % 3.2 % (0.0-6.0); HEMATOCRIT 41.6 % (38.2-49.6); HEMOGLOBIN 15.8 g/dL (14.0-18.0); LYMPHOCYTES # (AUTO) 1.6 (1.0-3.2); LYMPHOCYTES % 23.7 % (18.0-39.1); MEAN CORPUSCULAR HEMOGLOBIN 35.4 pg (28-32); MEAN CORPUSCULAR VOLUME 93.3 fL (81-99); MONOCYTES # (AUTO) 0.6 (0.2-0.8); MONOCYTES % 8.2 % (4.4-11.3); NEUTROPHILS # (AUTO) 4.3 (2.1-6.9); NEUTROPHILS % 63.8 % (38.7-80.0); PLATELET COUNT 167 x10e3/uL (140-360); RED BLOOD COUNT 4.46 x10e6/uL (4.3-5.7); RED CELL DISTRIBUTION WIDTH 13.1 % (11.7-14.4)
[2022-03-28 20:25] LABS: CLARITY,URINE CLEAR (CLEAR); COLOR,URINE YELLOW (YELLOW); KETONES,URINE 1+ (NEGATIVE); LEUKOCYTE ESTERASE ,URINE NEGATIVE (NEGATIVE); NITRITE,URINE NEGATIVE (NEGATIVE); PROTEIN,URINE DIPSTICK NEGATIVE (NEGATIVE); URINE UROBILINOGEN 0.2 mg/dL (0.2 - 1)
[2022-03-28 20:29] LABS: INR 0.73; PARTIAL THROMBOPLASTIN TIME 25.3 seconds (23.8-35.5)
[2022-03-28 20:33] LABS: BACTERIA,URINE FEW /HPF; EPITHELIAL CELLS,URINE MANY /LPF; TRANSITIONAL EPI CELLS,URINE FEW; WBC,URINE (MAN) 21-50 /HPF (0-5)
[2022-03-28 20:38] LABS: AMYLASE 34 U/L (25-125); LIPASE 55 U/L (8-78)
[2022-03-28 20:40] LABS: ALBUMIN 3.3 g/dL (3.5-5.0); ALBUMIN/GLOBULIN RATIO 0.5 (0.8-2.0); CALCIUM 9.4 mg/dL (8.4-10.2); CREATININE, SERUM 0.77 mg/dL (0.72-1.25)
[2022-03-29] MEDS ORDERED: AZITHROMYCIN 250 MG TAB PO ONE
[2022-03-29] MEDS ORDERED: PROTONIX20 MG PO (00:09)
[2022-03-29] MEDS ORDERED: CEFDINIR300 MG PO (00:09)
[2022-03-29] MEDS ORDERED: ONDANSETRON ODT4 MG PO (00:09)
[2022-03-29 00:39] VITALS: BP 129/84
== END 2022-03-28 23:30 | disposition home or self-care (01) ==
LOC: ER 19:19
DX: R10.13 Epigastric pain (principal); N39.0 Urinary tract infection, site not specified; E11.65 Type 2 diabetes mellitus with hyperglycemia; E78.5 Hyperlipidemia, unspecified
CPT/HCPCS: 36415; 74177; 80053; 81001; 82150; 83690; 85025; 85610; 85730; 99284; J2270; J2405; J7030; J0696

== ENCOUNTER 2025-03-28 09:59 | Emergency (ER) | payer BC, SELFPAY ==
[~2025-03-28] VITALS: Ht 182.9 cm; Wt 113.4 kg
[~2025-03-28 09:59] MED LIST changes: +CEFDINIR300 MG PO; +ONDANSETRON ODT4 MG PO; +PROTONIX20 MG PO; -SODIUM CHLORIDE 0.9% 1000ML 1,000 ML IV SCH; -SODIUM CHLORIDE FLUSH 10 ML SYR IV PRN
[2025-03-28 11:00] VITALS: TEMP 98.6
[2025-03-28] MEDS: SODIUM CHLORIDE 0.9% 1000ML 1,000 ML IV STA (11:12)
[2025-03-28 11:32] LABS: BASOPHILS % 0.6 % (0.0-1.0); EOSINOPHILS % 2.0 % (0.0-6.0); LYMPHOCYTES % 20.7 % (18.0-39.1); MONOCYTES % 11.1 % (4.4-11.3); NEUTROPHILS % 65.2 % (38.7-80.0); RED CELL DISTRIBUTION WIDTH 13.8 % (11.7-14.4)
[2025-03-28 11:49] LABS: AMPHETAMINES SCREEN,URINE NEGATIVE (NEGATIVE); OPIATES SCREEN,URINE NEGATIVE (NEGATIVE)
[2025-03-28 11:50] LABS: CANNABINOIDS SCREEN,URINE NEGATIVE (NEGATIVE); COCAINE SCREEN,URINE NEGATIVE (NEGATIVE); METHADONE SCREEN, URINE NEGATIVE (NEGATIVE)
[2025-03-28 12:07] LABS: EST GLOMERULAR FILTRATION RATE 118.0 ML/MIN (>=60)
[2025-03-28 12:40] LABS: ETHANOL < 10.0 mg/dL (0.0-10.0)
[2025-03-28] MEDS ORDERED: IOPAMIDOL 370 MG/ML 100 ML INFUS..BTL INJ ONE (12:54)
[2025-03-28 15:30] VITALS: PULSE 72; RESP 15; O2SAT 99
== END 2025-03-28 15:44 | disposition home or self-care (01) ==
LOC: ER 10:06
DX: R10.13 Epigastric pain (principal); K92.0 Hematemesis; K76.0 Fatty (change of) liver, not elsewhere classified; R19.7 Diarrhea, unspecified; E11.65 Type 2 diabetes mellitus with hyperglycemia; E78.5 Hyperlipidemia, unspecified; Z85.528 Personal history of other malignant neoplasm of kidney
CPT/HCPCS: 36415; 74177; 80053; 80307; 80320; 83690; 85025; 99283; J7030; Q9967

== ENCOUNTER 2025-04-05 16:39 | Emergency (ER) | payer BC ==
[~2025-04-05] VITALS: Ht 182.9 cm; Wt 116.3 kg
[2025-04-05] MEDS ORDERED: KETOROLAC TROMETHAMINE 60 MG/2 ML VIAL IM STA (17:02)
[2025-04-05] MEDS ORDERED: GLIMEPIRIDE2 MG PO (17:26)
[2025-04-05] MEDS ORDERED: JARDIANCE10 MG (17:26)
[2025-04-05] MEDS ORDERED: TRESIBA FL100 UNIT/1 (17:26)
[2025-04-05] MEDS: KETOROLAC TROMETHAMINE 30 MG/ML VIAL IM STA (17:47)
[2025-04-05] MEDS ORDERED: ULTRAM 50MG50 MG PO (18:47)
[2025-04-05 18:48] VITALS: PULSE 83; RESP 16; TEMP 98.5; O2SAT 97
== END 2025-04-05 18:56 | disposition home or self-care (01) ==
LOC: FSED 16:47
DX: S86.912A Strain of unspecified muscle(s) and tendon(s) at lower leg level, left leg, initial encounter (principal); X50.0XXA Overexertion from strenuous movement or load, initial encounter; X50.9XXA Other and unspecified overexertion or strenuous movements or postures, initial encounter; E11.9 Type 2 diabetes mellitus without complications; E78.5 Hyperlipidemia, unspecified; Z85.528 Personal history of other malignant neoplasm of kidney; Z79.4 Long term (current) use of insulin
CPT/HCPCS: 73590; 93971; 96372; 99284; J1885